=== PATIENT | female | born 1990 | race Caucasian/White ===

== ENCOUNTER 2018-10-16 23:33 | Emergency (ER) | payer SELFPAY ==
--- NOTE | 2018-10-17 01:12 | ER ---
Nurse's Notes [facility] Name: Karrie Rodriguez Age: 28 yrs Sex: Female : 1990 Arrival Date: 10/16/2018 Time: 23:37 Bed 23 Private MD: Diagnosis: Superficial injury of head;Abrasion, right knee;Abrasion, left knee Presentation: 10/16 23:42 Presenting complaint: Patient states: she was walking her dog and it tried to run off aa1 and jerked her causing her to hit her head on a brick wall and then fall to the ground. Hematoma noted to L church and abrasions noted to luis a knees and L elbow. Denies LOC. Transition of care: patient was not received from another setting of care. Onset of symptoms was October 16, 2018. Risk Assessment: Do you want to hurt yourself or someone else? Patient reports no desire to harm self or others. Initial Sepsis Screen: Does the patient meet any 2 criteria? No. Patient's initial sepsis screen is negative. Does the patient have a suspected source of infection? No. Patient's initial sepsis screen is negative. Care prior to arrival: None. 23:42 Method Of Arrival: Ambulatory aa1 23:42 Acuity: MARCELO 4 aa1 Triage Assessment: 23:44 General: Appears in no apparent distress. comfortable, Behavior is cooperative, aa1 appropriate for age, anxious. 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 - Social history:: Smoking status: Patient/guardian denies using tobacco. - Ebola Screening: : No symptoms or risks identified at this time. Screenin:49 Abuse screen: Denies threats or abuse. Nutritional screening: No deficits noted. la1 Tuberculosis screening: No symptoms or risk factors identified. Fall Risk None identified. Assessment: 23:47 Reassessment: hematoma noted to left frontal scalp area, abrasions to LUIS A knees. Pt la1 reports dizziness, denies LOC, vomiting, nausea. General: Appears uncomfortable, Behavior is anxious. Pain: Complains of pain in left and right knee, forehead. Neuro: Level of Consciousness is awake, alert, obeys commands, Oriented to person, place, time, situation. Cardiovascular: Capillary refill < 3 seconds Patient's skin is warm and dry. Respiratory: Airway is patent Respiratory effort is even, unlabored, Respiratory pattern is regular, symmetrical. GI: No signs and/or symptoms were reported involving the gastrointestinal system. : No signs and/or symptoms were reported regarding the genitourinary system. Vital Signs: 23:44 BP 135 / 91; Pulse 106; Resp 18; Temp 98.4; Pulse Ox 97% on R/A; Weight 59.87 kg; aa1 Height 5 ft. 5 in. (165.10 cm); Pain 07/16; 10/17 01:20 BP 133 / 76; Pulse 75; Resp 16; Pulse Ox 98% on R/A; la1 10/16 23:44 Body Mass Index 21.97 (59.87 kg, 165.10 cm) aa1 Sparkman Coma Score: 01:07 Eye Response: spontaneous(4). Verbal Response: oriented(5). Motor Response: obeys pm1 commands(6). Total: 15. ED Course: 10/16 23:37 Patient arrived in ED. ds1 23:44 Triage completed. aa1 23:44 Arm band placed on right wrist. aa1 23:47 Bryon Cerrato, AMADOR is Primary Nurse. la1 23:49 Call light in reach. Side rails up X 1. la1 23:59 Albaro Pelayo NP is PHCP. pm1 23:59 Jacob Patrick MD is Attending Physician. pm1 08 00:46 CT Head Brain wo Cont In Process Unspecified. EDMS 00:52 CT completed. Patient tolerated procedure well. Patient moved to CT via wheelchair. eh Patient moved back from CT. 01:21 No provider procedures requiring assistance completed. Patient did not have IV access la1 during this emergency room visit. Administered Medications: No medications were administered Outcome: 01:11 Discharge ordered by . pm1 01:28 Discharged to home ambulatory. la1 01:28 Condition: stable 01:28 Discharge instructions given to patient, Instructed on discharge instructions, follow up and referral plans. Demonstrated understanding of instructions, follow-up care. 01:29 Patient left the ED. la1 Signatures: Dispatcher [employer] EDMS Jaky Perez RN RN aa1 Fei Lr Demi ds1 Bryon Cerrato RN RN la1 Albaro Pelayo, GREEN WARE CASTER GREEN WARE CASTER pm1
--- NOTE | 2018-10-17 01:13 | EDPHYS ---
Physician Documentation [facility] Name: Karrie Rodriguez Age: 28 yrs Sex: Female : 1990 Arrival Date: 10/16/2018 Time: 23:37 Bed 23 Private MD: ED Physician Jacob Patrick HPI: 10/17 01:07 This 28 yrs old Female presents to ER via Ambulatory with complaints of Head pm1 injury. 01:07 The patient or guardian reports injury. The complaints affect the forehead left side. pm1 Context of injury: The problem was sustained outdoors, resulted from running into a wall. Onset: The symptoms/episode began/occurred just prior to arrival. Associated signs and symptoms: Loss of consciousness: This patient did not experience any loss of consciousness. Pertinent positives: headache, Pertinent negatives: nausea, neck pain, seizure, vomiting. Severity of symptoms: in the emergency department the symptoms have improved. The patient has not experienced similar symptoms in the past. The patient has not recently seen a physician. 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 - Social history:: Smoking status: Patient/guardian denies using tobacco. - Ebola Screening: : No symptoms or risks identified at this time. ROS: 10/17 01:07 Constitutional: Negative for fever, chills, and weight loss, Eyes: Negative for injury, pm1 pain, redness, and discharge, ENT: Negative for injury, pain, and discharge, Neck: Negative for injury, pain, and swelling, Cardiovascular: Negative for chest pain, palpitations, and edema, Respiratory: Negative for shortness of breath, cough, wheezing, and pleuritic chest pain, Abdomen/GI: Negative for abdominal pain, nausea, vomiting, diarrhea, and constipation, Back: Negative for injury and pain, MS/Extremity: Negative for injury and deformity. Skin: Positive for abrasion(s), of the right knee and left knee, Negative for laceration(s). Neuro: Positive for headache, Negative for dizziness, numbness, tingling, weakness. Exam: 01:07 Constitutional: This is a well developed, well nourished patient who is awake, alert, pm1 and in no acute distress. 01:07 Eyes: Pupils equal round and reactive to light, extra-ocular motions intact. Lids and lashes normal. Conjunctiva and sclera are non-icteric and not injected. Cornea within normal limits. Periorbital areas with no swelling, redness, or edema. ENT: Nares patent. No nasal discharge, no septal abnormalities noted. Tympanic membranes are normal and external auditory canals are clear. Oropharynx with no redness, swelling, or masses, exudates, or evidence of obstruction, uvula midline. Mucous membranes moist. Neck: Trachea midline, no thyromegaly or masses palpated, and no cervical lymphadenopathy. Supple, full range of motion without nuchal rigidity, or vertebral point tenderness. No Meningismus. Chest/axilla: Normal chest wall appearance and motion. Nontender with no deformity. No lesions are appreciated. Cardiovascular: Regular rate and rhythm with a normal S1 and S2. No gallops, murmurs, or rubs. Normal PMI, no JVD. No pulse deficits. Respiratory: Lungs have equal breath sounds bilaterally, clear to auscultation and percussion. No rales, rhonchi or wheezes noted. No increased work of breathing, no retractions or nasal flaring. Abdomen/GI: Soft, non-tender, with normal bowel sounds. No distension or tympany. No guarding or rebound. No evidence of tenderness throughout. Back: No spinal tenderness. No costovertebral tenderness. Full range of motion. 01:07 Neuro: Awake and alert, GCS 15, oriented to person, place, time, and situation. Cranial nerves II-XII grossly intact. Motor strength 5/5 in all extremities. Sensory grossly intact. Cerebellar exam normal. Normal gait. 01:07 Head/face: Noted is no obvious of injury or deformity except contusion, that is superficial, of the forehead left side. 01:07 Skin: Appearance: normal except for affected area, injury, abrasion(s), small abrasion noted, of the right knee and left knee. Vital Signs: 10/16 23:44 BP 135 / 91; Pulse 106; Resp 18; Temp 98.4; Pulse Ox 97% on R/A; Weight 59.87 kg; aa1 Height 5 ft. 5 in. (165.10 cm); Pain 07/16; 10/17 01:20 BP 133 / 76; Pulse 75; Resp 16; Pulse Ox 98% on R/A; la1 10/16 23:44 Body Mass Index 21.97 (59.87 kg, 165.10 cm) aa1 Sun Coma Score: 01:07 Eye Response: spontaneous(4). Verbal Response: oriented(5). Motor Response: obeys pm1 commands(6). Total: 15. MDM: 10/16 23:59 Patient medically screened. pm1 10/17 01:07 Data reviewed: vital signs. Data interpreted: Pulse oximetry: on room air is 97 %. pm1 Interpretation: normal. Counseling: I had a detailed discussion with the patient and/or guardian regarding: the historical points, exam findings, and any diagnostic results supporting the discharge/admit diagnosis, radiology results, the need for outpatient follow up, to return to the emergency department if symptoms worsen or persist or if there are any questions or concerns that arise at home. 10/17 00:00 Order name: CT Head Brain wo Cont pm1 Administered Medications: No medications were administered Disposition: 02:38 Co-signature as Attending Physician, Jacob Patrick MD. Disposition: 10/17/18 01:11 Discharged to Home. Impression: Superficial injury of head, Abrasion, right knee, Abrasion, left knee. - Condition is Stable. - Discharge Instructions: Abrasion, Head Injury, Adult. - Medication Reconciliation Form, Thank You Letter, Antibiotic Education, Prescription Opioid Use form. - Follow up: Emergency Department; When: As needed; Reason: Worsening of condition. Follow up: Private Physician; When: 2 - 3 days; Reason: Recheck today's complaints, Continuance of care, Re-evaluation by your physician. - Problem is new. - Symptoms have improved. Signatures: Dispatcher [employer] EDMS Jaky Perez RN RN aa1 Bryon Cerrato RN RN la1 Albaro Pelayo, COAT OPERATOR INSULATOR COAT OPERATOR INSULATOR pm1 Jacob Patrick MD MD Corrections: (The following items were deleted from the chart) 00:39 00:12 Urine Dipstick-Ancillary ordered. pm1 mw2 00:39 00:12 Urine Test ordered. pm1 mw2 01:29 01:11 10/17/2018 01:11 Discharged to Home. Impression: Superficial injury of head; la1 Abrasion, right knee; Abrasion, left knee. Condition is Stable. Forms are Medication Reconciliation Form, Thank You Letter, Antibiotic Education, Prescription Opioid Use. Follow up: Emergency Department; When: As needed; Reason: Worsening of condition. Follow up: Private Physician; When: 2 - 3 days; Reason: Recheck today's complaints, Continuance of care, Re-evaluation by your physician. Problem is new. Symptoms have improved. pm1
--- NOTE | 2018-10-18 11:19 | RAD REPORT ---
EXAM DESCRIPTION: CT - Head Brain Wo Cont - 10/17/2018 6:23 am CLINICAL HISTORY: 28 years Female HEADACHE COMPARISON: None TECHNIQUE: Contiguous axial images of the brain were obtained without the administration of intraven ous contrast.This exam was performed according to our departmental dose-optimization program which in cludes use of Automated Exposure Control, adjustment of the mA and/or kV according to patient size an d/or use of iterative reconstruction technique. Findings: Brain: No acute intracranial hemorrhage. No acute territorial infarct. No extra-axial collection. No mass effect or herniation. Ventricles: Within normal limits in size. Globes and orbits: No acute abnormality. Bones: No acute osseous finding. Paranasal sinuses: Paranasal sinuses are clear. Mastoid air cells: Well pneumatized. Soft tissues: Left frontal and temporal soft tissue swelling and hematoma. IMPRESSION: No acute intracranial abnormality. The frontotemporal soft tissue swelling and small hematoma. Electronically signed by: João Rodriguez DO 10/17/2018 12:51 AM CDT Due to temporary technical issues with the PACS/Fluency reporting system, reports are being signed by the in house radiologist as a courtesy to ensure prompt reporting. The interpreting radiologist is f ully responsible for the content of the report.
== END 2018-10-17 01:29 | disposition home or self-care (01) ==
LOC: ER 23:33
DX: S00.90XA Unspecified superficial injury of unspecified part of head, initial encounter (principal); S80.212A Abrasion, left knee, initial encounter; S80.211A Abrasion, right knee, initial encounter; W22.8XXA Striking against or struck by other objects, initial encounter; Y93.01 Activity, walking, marching and hiking; Y92.89 Other specified places as the place of occurrence of the external cause; F90.9 Attention-deficit hyperactivity disorder, unspecified type
CPT/HCPCS: 70450; 99284